=== PATIENT | male | born 1970 | race Caucasian/White ===

== ENCOUNTER 2016-10-21 13:08 | Emergency (ER) | payer OTHER ==
[~2016-10-21] VITALS: Ht 180.3 cm; Wt 90.0 kg
[2016-10-21 13:09] VITALS: BP 168/84; PULSE 78; RESP 17; TEMP 97.8; O2SAT 99
--- NOTE | 2016-10-21 13:14 | PD ---
Physical Exam Date Seen by Provider: October 21, 2016 Time Seen by Provider: 13:12 Narrative Right hand injury. 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 Pain is a 6/10. VSS, awaiting bed placement. Data Data Last Documented VS Vital Signs Date Time Temp Pulse Resp B/P Pulse Ox O2 Delivery O2 Flow Rate FiO2 10/21/16 13:09 97.8 78 17 168/84 99 MDM Supervised Visit with JANES: Prabha Case October 21, 2016 13:14
--- NOTE | 2016-10-21 13:22 | PD ---
HPI . right hand pain since earlier today Chief Complaint: Injury Time Seen by Provider: 13:22 Travel History International Travel<30 days: No Contact w/Intl Traveler<30days: No Traveled to known affect area: No History of Present Illness HPI 46-year-old male who works at the [employer] here with complaints of right hand pain. 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 Patient is now reporting pain in the distal portion of the dorsum of the hand towards the fourth and fifth metacarpals. He rates the pain as 6/10 and throbbing in nature. There is no radiation. He now has diminished line walker strength in this hand and has never had this issue before. Patient is right handed dominant. He is accompanied by his brother Alber. [facility] Past Medical History Medical History: Denies Significant Hx Social History Alcohol Use: No Tobacco Use: No Substance Use: No Allergies-Medications (Allergen,Severity, Reaction): Coded Allergies: No Known Allergies (Unverified , 10/21/16) Reported Meds & Prescriptions Reported Meds & Active Scripts Active Ibuprofen 800 Mg Tab 800 Mg PO TID Review of Systems General / Constitutional: No: Fever Eyes: No: Visual changes HENT: No: Headaches Cardiovascular: No: Chest Pain or Discomfort Respiratory: No: Shortness of Breath Gastrointestinal: No: Abdominal Pain Genitourinary: No: Dysuria Musculoskeletal: No: Pain (right hand pain) Skin: No Rash Neurologic: No: Weakness Psychiatric: No: Depression Endocrine: No: Polydipsia Hematologic/Lymphatic: No: Easy Bruising Physical Exam Narrative GENERAL: AAO x 3, no acute distress, Well-nourished, well-developed patient. SKIN: Warm and dry. slight ecchymosis to the dorsum of right hand near 4th and 5th metacarpal. HEAD: Normocephalic and atraumatic. EYES: No scleral icterus. No injection or drainage. ENT: No nasal drainage noted. Airway patent. NECK: Supple, trachea midline. No JVD. CARDIOVASCULAR: Regular rate and rhythm without murmurs, gallops, or rubs. RESPIRATORY: Breath sounds equal bilaterally. No accessory muscle use. No rhonchi or rales. GASTROINTESTINAL: Abdomen soft, non-tender, nondistended. EXTREMITIES: slight edema to right dorsum near 4th and 5th metacarpal. tender to touch. line walker strength diminished in right hand. BACK: Nontender without obvious deformity. No CVA tenderness. PSYCH: AAO x 3, normal affect. Data Data Last Documented VS Vital Signs Date Time Temp Pulse Resp B/P Pulse Ox O2 Delivery O2 Flow Rate FiO2 10/21/16 13:09 97.8 78 17 168/84 99 Orders Ibuprofen (Motrin) (10/21/16 13:30) Hand, Complete ([id number]) (10/21/16 13:29) Splinting (10/21/16 ) Splint Or Brace Apply/Monitor (10/21/16 14:51) Fiberglass Splint Forearm Adul (10/21/16 ) Sling Cradle Arm (10/21/16 ) MDM Medical Decision Making Medical Screen Exam Complete: Yes Emergency Medical Condition: Yes Medical Record Reviewed: Yes Differential Diagnosis right hand pain Narrative Course 46-year-old male who works at the [employer] here with complaints of right hand pain. 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 Patient is now reporting pain in the distal portion of the dorsum of the hand towards the fourth and fifth metacarpals. He rates the pain as 6/10 and throbbing in nature. There is no radiation. He now has diminished line walker strength in this hand and has never had this issue before. Patient is right handed dominant. He is accompanied by his brother Alber. Patient seen and examined. He does have some edema to the 4th and 5th metacarpals. There is some point tenderness present. It is possible there is a fracture. xray ordered. Xray: prelim: 4th metacarpal fracture xray read: 4th metacarpal fracture mild displacement Discussed with patient that he will need to see hand surgery for recommendations and f/u advised f/u in next 3-5 days. discussed no use of right hand Patient verbalized understanding of instructions, questions were answered, and thanked me for their care. I advised them if their condition worsens, please return to the nearest emergency room for further care. Diagnosis Primary Impression: Closed right hand fracture Qualified Code: S62.91XA - Closed right hand fracture, initial encounter Referrals: Hand Surgeon Patient Instructions: General Instructions, Hand Fracture (ED) Additional Instructions: Rest the affected area as much as possible. Keep this area compressed. If any swelling develops, please go to the nearest emergency department. Elevate this area. Use ibuprofen as needed for pain and inflammation. Please seen the hand surgeon within the next week. Med/Other Pt SpecificInfo: Prescription(s) given Scripts Ibuprofen 800 Mg Fof433 Mg PO TID #21 TAB Prov:Enma Mckeon MD 10/21/16 Disposition: 01 DISCHARGE HOME Condition: Stable Zina Freeman October 21, 2016 13:22
[2016-10-21] MEDS ORDERED: IBUPROFEN 800 MG TAB PO ONE (13:30)
--- NOTE | 2016-10-21 14:21 | RADRPT ---
EXAM DATE/TIME: 10/21/2016 13:53 [facility] COMPARISON: No previous studies available for comparison. INDICATIONS : Right hand pain after being twisted in a machine. MEDICAL HISTORY : None. SURGICAL HISTORY : None. ENCOUNTER: Initial ACUITY: 1 day PAIN SCORE: 6/10 LOCATION: Right hand. FINDINGS: Minimally displaced oblique midshaft fracture seen of the fourth metacarpal. No other acute fractures are demonstrated. Articular surfaces are normal. No subluxations. CONCLUSION: Minimally displaced midshaft fracture of the fourth metacarpal. Deshawn Roland MD on October 21, 2016 at 14:18 Board Certified Radiologist. This report was verified electronically.
[2016-10-21] MEDS ORDERED: IBUP800T23 PO (14:40)
== END 2016-10-21 15:19 | disposition home or self-care (01) ==
LOC: NEPK 13:08
DX: S62.324A Displaced fracture of shaft of fourth metacarpal bone, right hand, initial encounter for closed fracture (principal); X50.1XXA Overexertion from prolonged static or awkward postures, initial encounter; Y93.H1 Activity, digging, shoveling and raking; Y92.89 Other specified places as the place of occurrence of the external cause; Y99.0 Civilian activity done for income or pay
CPT/HCPCS: 29125; 73130

== ENCOUNTER 2016-10-24 16:46 | Emergency (ER) | payer OTHER ==
[~2016-10-24] VITALS: Ht 180.3 cm; Wt 91.0 kg
[~2016-10-24 16:46] MED LIST: IBUP800T23 PO
[2016-10-24 16:48] VITALS: BP 160/94; PULSE 56; RESP 16; TEMP 98.4; O2SAT 98
--- NOTE | 2016-10-24 17:51 | PD ---
HPI Chief Complaint: Edema Time Seen by Provider: 17:49 Travel History International Travel<30 days: No Contact w/Intl Traveler<30days: No Traveled to known affect area: No History of Present Illness HPI 46-year-old male presents to emergency department with complaint of splint to right upper extremity being too tight after it was applied on October 21 secondary to a hand fracture. He has a follow-up appointment with Dr. Boyd on Tuesday and wanted to get it checked because it is uncomfortable. Reports swelling of his fingers. He has tried loosening the Mandeep bandage with no relief of symptoms. Denies loss of sensation or cyanosis to the fingers. Has tried icing and elevating it with no relief of symptoms. Denies fever, vomiting. Has no other medical complaints. No known allergies. No other modifying factors or associated signs and symptoms. PFSH Past Medical History Diminished Hearing: No Immunizations Current: No Social History Alcohol Use: No Tobacco Use: No Substance Use: No Allergies-Medications (Allergen,Severity, Reaction): Coded Allergies: No Known Allergies (Unverified , 10/21/16) Reported Meds & Prescriptions Reported Meds & Active Scripts Active Ibuprofen 800 Mg Tab 800 Mg PO TID Review of Systems Except as stated in HPI: all other systems reviewed are Neg Physical Exam Narrative GENERAL: Well-nourished, well-developed male patient, in no acute distress; afebrile, nontoxic-appearing SKIN: Warm and dry. Right approximately with temporary ulnar gutter splint in place,: Fingers are pink and warm and with less than 3 second cap refill; sensory intact to all fingers; fingers are edematous. HEAD: Atraumatic. Normocephalic. EYES: Pupils equal and round. No scleral icterus. No injection or drainage. ENT: Mucosa pink and moist. Airway patent. NECK: Trachea midline. CARDIOVASCULAR: Regular rate. RESPIRATORY: No accessory muscle use. GASTROINTESTINAL: Rounded. MUSCULOSKELETAL: No obvious deformities. No clubbing. No cyanosis. No edema. NEUROLOGICAL: Awake and alert. Oriented 3. No obvious cranial nerve deficits. Motor grossly within normal limits. Normal speech. PSYCHIATRIC: Appropriate mood and affect; insight and judgment normal. Data Data Last Documented VS Vital Signs Date Time Temp Pulse Resp B/P Pulse Ox O2 Delivery O2 Flow Rate FiO2 10/24/16 16:48 98.4 56 16 160/94 98 Room Air [facility] Medical Decision Making Medical Screen Exam Complete: Yes Emergency Medical Condition: Yes Medical Record Reviewed: Yes Differential Diagnosis Splint check, splint change, splint discomfort Narrative Course 46-year-old male was seen here on September 21 and ulnar gutter splint was placed for right hand fracture. He presents with splint discomfort and it being too tight. I removed the Mandeep bandage and the patient continued to complain that the hardened area of the splint was too tight around his fingers. Re-splinting ordered. Instructed patient to follow up with his scheduled appointment with Dr. Patterson on Tuesday. Instructed patient to continue to use his arm sling for elevation and to ice the affected extremity. Patient verbalizes understanding and agreement with treatment plan. Patient is medically cleared and stable for discharge. Discussed reasons to return to the emergency department. Instructed patient to follow up with primary care provider. Patient agrees with treatment plan. The patients vital signs are stable and the patient is stable for outpatient follow-up and treatment. Patient discharged home, stable and in no acute distress. Diagnosis Primary Impression: Aftercare for cast or splint check or change Referrals: Vadim Little MD Primary Care Physician Patient Instructions: General Instructions, Splint Care (ED) Additional Instructions: Tylenol or ibuprofen as directed and as needed to reduce pain Rest, ice, compress, and elevate extremity to decrease pain and inflammation Do not remove splint to follow-up with hand specialist Avoid aggravating activity; increase activity as tolerated Follow-up with primary care provider Follow-up with hand specialist at scheduled appointment on Tuesday Return to the emergency department immediately with worsening symptoms Med/Other Pt SpecificInfo: No Change to Meds, No Meds Exist/No RX given Disposition: DISCHARGE HOME Condition: Stable Annie Howell October 24, 2016 17:51
== END 2016-10-24 18:15 | disposition home or self-care (01) ==
LOC: NEPK 16:46
DX: S62.91XD Unspecified fracture of right hand, subsequent encounter for fracture with routine healing (principal); X58.XXXD Exposure to other specified factors, subsequent encounter
CPT/HCPCS: 29125